=== PATIENT | female | born 1995 | race Caucasian/White ===

== ENCOUNTER 2017-06-21 01:59 | Emergency (ER) | payer OTHER ==
[~2017-06-21] VITALS: Ht 162.6 cm; Wt 113.6 kg
[2017-06-21 02:01] VITALS: BP 152/73; TEMP 98.2
[2017-06-21] MEDS ORDERED: PROAIR HFA0.09 MG/AC IH (02:15)
[2017-06-21] MEDS ORDERED: PREDNISONE20 MG PO (02:16)
[2017-06-21 03:00] VITALS: PULSE 112
== END 2017-06-21 03:00 | disposition home or self-care (01) ==
LOC: COL.ER 01:59
DX: J45.901 Unspecified asthma with (acute) exacerbation (principal); Z77.22 Contact with and (suspected) exposure to environmental tobacco smoke (acute) (chronic)
CPT/HCPCS: J7512